=== PATIENT | female | born 1985 | race African-American/Black ===

== ENCOUNTER 2025-04-04 22:29 | Emergency (ER) | payer MEDICAID ==
[~2025-04-04] VITALS: Ht 172.7 cm; Wt 70.0 kg
[2025-04-04 22:36] VITALS: TEMP 37.1; O2SAT 100
[2025-04-05] MEDS: BACITRACIN ZINC OINT UDPKT TOP ONE (01:15)
[2025-04-05] MEDS: LIDOCAINE HCL/PF 1% 10 MG/ML 5ML VIAL INFIL ONE ×2 (01:15→03:15)
[2025-04-05 01:59] VITALS: BP 168/90; PULSE 98; RESP 18
[2025-04-05] MEDS: KETOROLAC 30MG/ML VIAL IM ONE (01:59)
[2025-04-05] MEDS: TETANUS, DIPHTHERIA, PERTUSSIS VAC/PF 0.5ML (>10YR OLD) IM ONE (02:01)
[2025-04-05] MEDS ORDERED: HYDR-4001 MT (05:44)
[2025-04-05] MEDS ORDERED: FLUT9.9S BOTHNSTRLS (05:44)
[2025-04-05] MEDS ORDERED: DOXY100C5 MT (05:44)
[2025-04-05] MEDS ORDERED: IBUP-2029 MT (05:44)
[2025-04-05] MEDS ORDERED: PSEU120T84 MT (05:44)
== END 2025-04-05 07:41 | disposition home or self-care (01) ==
LOC: ER 22:29
DX: S01.511A Laceration without foreign body of lip, initial encounter (principal); I10 Essential (primary) hypertension; Z88.0 Allergy status to penicillin; Y08.89XA Assault by other specified means, initial encounter; Y93.89 Activity, other specified; Y92.89 Other specified places as the place of occurrence of the external cause; Y99.8 Other external cause status
CPT/HCPCS: 81025; 99285; 71045; 70486; 90715; 90471; 96372; J1885; J2003; Z7610